=== PATIENT | male | born 1980 | race Two or more races ===

== ENCOUNTER 2024-08-10 20:35 | Emergency (ER) | payer MEDICAID, SELFPAY ==
[2024-08-10 20:51] VITALS: BP 158/98; PULSE 98; RESP 18; TEMP 36.9; O2SAT 96; BMI 34.4
--- NOTE | 2024-08-10 20:58 | XR_ITS ---
Examination: CT abdomen and pelvis without contrast. Coronal 3-D reconstructions. Sagittal 2-D reconstructions. Date and time of exam:July 14, 2024 2134 hrs. Indications: Bilateral flank pain beginning 3 days ago CTDI: vol (mGy): 9.82 DLP: (mGycm): 633 Technique: Axial images of the abdomen have been obtained, 3 mm slice thickness Intravenous contrast material has not been administered. Low dose protocols were performed. One or more of the following dose reduction techniques were used; automated exposure control, adjustment of the mA and/or KV according to patient size, use of iterative reconstruction technique. Findings: No focal liver or splenic lesions Contracted gallbladder No pancreatic or adrenal mass No renal or ureteral calculi, no hydronephrosis Aorta normal size Normal appendix 12 mm fat-containing umbilical hernia No bowel obstruction No diverticulitis Intact urinary bladder No prostatomegaly Impression: No renal or ureteral calculi, no hydronephrosis Normal appendix No bowel flexion diverticulitis or free air
--- NOTE | 2024-08-10 20:59 | PD.EDRME ---
Rapid Medical Screening Exam RME Arrival date/time: 08/10/24 20:35 43 year old male present Ed for c/o of flank pain for 3 days I have greeted and performed a focused initial assessment of this patient. A comprehensive ED assessment and evaluation of the patient, analysis of all test results, and completion of the medical decision making process will be conducted by additional ED providers. Chief Complaint: General Adult/Misc Complain Vital signs: Vital Signs Temperature 98.5 F 08/10/24 20:51 Pulse Rate 98 08/10/24 20:51 Respiratory Rate 18 08/10/24 20:51 Blood Pressure 158/98 H 08/10/24 20:51 Pulse Oximetry (%) 96 08/10/24 20:51 Oxygen Delivery Method Room Air 08/10/24 20:51
[2024-08-10 21:37] LABS: Basophils # (Auto) 0.1 Thou/mm3 (0.0-0.2); Basophils % (Auto) 1 % (0-2.5); Eosinophils # (Auto) 0.5 Thou/mm3 (0.0-0.5); Eosinophils % (Auto) 6 % (0-10); Hematocrit 41.3 % (41.0-53.0); Hemoglobin 13.9 g/dL (13.5-16.0); Immature Granulocytes % (Auto) 0 % (0-0); Immature Granulocytes Auto 0.02 Thou/mm3 (0.00-0.00); Lymphocytes # (Auto) 2.6 Thou/mm3 (1.0-4.8); Lymphocytes % (Auto) 36 % (10-50); Mean Corpuscular HGB Conc 33.7 g/dl (31.0-37.0); Mean Corpuscular Hemoglobin 28.8 pg (25.0-35.0); Mean Corpuscular Volume 86 fL (80-100); Monocytes # (Auto) 0.8 Thou/mm3 (0.0-0.8); Monocytes % (Auto) 11 % (0-12); Neutrophils # (Auto) 3.4 Thou/mm3 (1.8-7.7); Neutrophils % (Auto) 46 % (37-80); Nucleated Red Blood Cell % 0 /100 WBC (0); Platelet Count 254 Thou/mm3 (140-440); RDW Standard Deviation 42.1 fL (35.1-43.9); Red Blood Count 4.83 Miln/mm3 (4.50-5.90); White Blood Count 7.4 Thou/mm3 (3.8-10.6)
[2024-08-10 21:49] LABS: Collection Type, Urine Voided
[2024-08-10 21:51] LABS: Alanine Aminotransferase 99 U/L (10-49); Albumin, Serum 5.1 gm/dL (3.5-5.0); Albumin/Globulin Ratio 1.9 (1.2-2.2); Alkaline Phosphatase 108 U/L (46-116); Anion Gap 8 (7-16); Aspartate Amino Transferase 60 U/L (0-34); BUN/Creatinine Ratio 12 Ratio (12-20); Bilirubin,Total 0.8 mg/dL (0.3-1.2); Blood Urea Nitrogen 12 mg/dL (9-23); Calcium 9.6 mg/dL (8.3-10.6); Calcium (Corrected) 9.6 mg/dL (8.5-10.1); Carbon Dioxide 25.1 mMol/L (20.0-31.0); Chloride 105 mMol/L (98-107); Estimated Creatinine Clearance 98.2 mL/min (>60); Globulin 2.7 gm/dL (2.3-3.5); Glucose 145 mg/dL (74-106); Lipase 39 U/L (12-53); Osmolality,Calculated 278 (275-295); Potassium 3.4 mMol/L (3.4-5.1); Sodium 138 mMol/L (136-145); Total Protein 7.8 gm/dL (5.7-8.2); eGFR > 60 See Note
[2024-08-10 21:53] LABS: Bilirubin,Urine Negative (Negative); Blood,Urine Negative (Negative); Clarity,Urine Clear (Clear/Hazy); Color,Urine Yellow (Lt Yel-Yel); Glucose, Urine Negative (Negative); Ketones,Urine Negative (Negative); Leukocyte Esterase,Urine Negative (Negative); Nitrite,Urine Negative (Negative); Protein,Urine Negative (Neg - Trace); RBC,Urine 3 /hpf (0-3); Specific Gravity,Urine 1.026 (1.001-1.035); Squamous Epithelial Cell,Urine < 1 /hpf (0-5); Urobilinogen,Urine Negative mg/dL (0.0-1.0); WBC,Urine < 1 /hpf (0-5)
[2024-08-10] MEDS: KETOROLAC INJ 60 MG/2 ML VIAL 30 MG IM (22:39)
--- NOTE | 2024-08-10 22:44 | XR_ITS ---
Examination: Abdomen sonogram, Limited Date and time of exam: August 10, 2024 at 1058 hrs. Indications: Right upper abdominal pain right flank pain beginning 5 days ago Technique: Real-time espinoza scale transabdominal sonographic images of the upper abdomen obtained. Findings: Gallbladder sludge No gallstones Common bile duct 0.4 cm Pancreatic head 2.7 cm Liver 17.1 cm lobular contour fatty infiltration no focal liver lesions Normal hepatopedal portal venous flow Patent IVC Impression: Gallbladder sludge, negative for cholelithiasis, negative for cholecystitis Mild hepatomegaly fatty infiltration suspect primary hepatocellular disease
--- NOTE | 2024-08-11 | EDNOTE_ITS ---
<Statement entered by Alessia Manzano MD - 08/11/24 05:12> As co-signing physician, I was present and available for consult prn. I concur with the plan and care as documented by the midlevel provider. ED General RME/HPI General Chief complaint: General Adult/Misc Complain Stated complaint: BILATERAL TRUNK PAIN Time Seen by Provider: 08/11/24 00:00 Arrival date/time: 08/10/24 20:35 43 year old male present to emergency room with c/o of back pain for 3 days. denies any trauma or injury Denies new trauma No fevers No unexplained weight loss of night sweats No recent surgeries or recurrent bacterial infections No IVDU Patient is not immunocompromised Denies any new focal neurological deficits or new motor weakness Denies bowel or bladder incontinence or saddle anesthesia LOCATION: diffuse and flanks SEVERITY: Symptoms are described as being severe with limitations on activities of daily living QUALITY: Symptoms are described as being dull or achy CONTEXT: The patient is unable to identify any inciting events. DURATION/TIMING: The symptoms started approximately 3 day ago and have been constant this then. ASSOCIATED SYMPTOMS: The patient is unable to identify any other associated symptoms. MODIFYING FACTORS: The patient is unable to identify any alleviating or aggravating symptoms. PERTINENT ROS: no fevers, no IVDU, denies any ripping or tearing sensations, no associated abdominal pain, no focal neurological deficits and denies any saddle anesthesia, and no bowel or bladder incontinence REVIEW OF SYSTEMS: See History of Present Illness - with the exception of those mentioned in the history of present illness, all other systems reviewed and reported as negative GENERAL: In general the patient is awake, interactive, in an emergency department gurney. HEAD/EYES/EARS/NOSE/THROAT: normo-cephalic, atraumatic, mucus membranes are moist, anicteric, palpebral conjunctiva is pink, trachea is midline. CARDIOVASCULAR: regular rate and regular rhythm, no murmurs, heart sounds are not distant, strong pulses in all four extremities that are equal and symmetric bilateral upper and lower extremities, normal capillary refill. CHEST/PULMONARY: normal chest rise and fall, good air movement, clear to auscultation bilaterally, normal inspiratory to expiratory ratios without evidence of respiratory distress. NECK: No midline/Paraspinal tenderness, no step off ROM/Strenght intact No Kernig and bruzinski sign. No trauma ABDOMEN: soft, not tender, no masses appreciated BACK: + flank tenderness normal range of motion without pain. NEUROLOGICAL: cranio-facial features are symmetric, moves all four extremities equally without obvious limitations or weakness. EXTREMITY: no tenderness to palpation over the long bones or large joints of the bilateral upper and lower extremities, no joint swelling, no joint erythema, no signs of trauma, no unilateral leg swelling and no peripheral edema. SKIN: warm, dry, well-perfused, no jaundice, no rash, no telangiectasias or petechia. PSYCH: calm, cooperative, no evidence of psychosis or agitation RME / HPI RME / HPI narrative: 08/10/24 20:35 43 year old male present Ed for c/o of flank pain for 3 days I have greeted and performed a focused initial assessment of this patient. A comprehensive ED assessment and evaluation of the patient, analysis of all test results, and completion of the medical decision making process will be conducted by additional ED providers. Related Data Previous Rx's ?Medication ?Instructions ?Recorded pantoprazole 40 mg tablet,delayed 40 mg PO QDAY #20 tabs 01/10/21 release (Protonix) dicyclomine 20 mg tablet 20 mg PO BID PRN abdominal pain 07/12/24 #30 tabs polyethylene glycol 3350 17 4 g PO QDAY PRN constipation #119 07/12/24 gram/dose oral powder (ClearLax) grams cyclobenzaprine 10 mg tablet 10 mg PO HS PRN muscle spasm #30 08/11/24 tabs meloxicam 7.5 mg tablet 7.5 mg PO QDAY #30 tabs 08/11/24 Allergies Allergy/AdvReac Type Severity Reaction Status Date / Time No Known Allergies Allergy Verified 08/10/24 20:37 Course Course Course Narrative: Patient?s symptoms not typical for emergent causes of abdominal pain such as, but not limited to, appendicitis, abdominal aortic aneurysm, surgical biliary disease, pancreatitis, SBO, mesenteric ischemia, serious intra-abdominal bacterial illness, genital torsion. Doubt atypical ACS. Pt tolerating PO. rx: mobic and flexeril Disposition: Patient will be discharged with strict return precautions and follow up with primary MD within 12-24 hours for further evaluation. Patient understands that this still may have an early presentation of an emergent medical condition such as appendicitis that will require a recheck. Quality Measures none Orders Category Date Time Status CT abdomen pelvis wo con Stat Exams 08/10/24 20:58 Completed US abdomen limited Stat Exams 08/10/24 22:44 Completed CBC Stat Lab 08/10/24 21:09 Completed CMP [Comprehensive Metabolic Panel] Stat Lab 08/10/24 21:09 Completed Lipase Stat Lab 08/10/24 21:09 Completed UA [Urinalysis] Stat Lab 08/10/24 21:39 Completed Urine Culture Stat Lab 08/10/24 21:39 Received Ketorolac Inj [Toradol Inj] Med 08/10/24 22:07 Discontinued 30 mg IM X1 ONE Vital Signs Vital signs: Vital Signs Temperature 98.5 F 08/10/24 20:51 Pulse Rate 98 08/10/24 20:51 Respiratory Rate 18 08/10/24 20:51 Blood Pressure 158/98 H 08/10/24 20:51 Pulse Oximetry (%) 96 08/10/24 20:51 Oxygen Delivery Method Room Air 08/10/24 20:51 [facility] Patient data External records reviewed:: None Clinical information provided by:: patient Social determinants that could affect healthcare access:: none Patient has the following chronic illnesses:: none How is presenting disease/condition affected by chronic disease/condition?: no chronic disease Evaluation data The following diagnostics were reviewed and interpreted by me:: lab results and radiology exam(s) Lab and/or radiology exams considered but not ordered:: none Interpretation Summary: cbc/cmp/urine no acute findings US: Gallbladder sludge No gallstones Common bile duct 0.4 cm Pancreatic head 2.7 cm Liver 17.1 cm lobular contour fatty infiltration no focal liver lesions Normal hepatopedal portal venous flow Patent IVC Impression: Gallbladder sludge, negative for cholelithiasis, negative for cholecystitis Mild hepatomegaly fatty infiltration suspect primary hepatocellular disease CT: no acute findings Medications Medications considered but not ordered:: none Medication administrations:: Medication Administration History Discontinued Medications Ketorolac Tromethamine (Ketorolac Inj 60 Mg/2 Ml Vial) 30 mg IM X1 ONE Stop: 08/10/24 22:08 Last Admin: 08/10/24 22:39 Dose: 30 mg Documented By: as stated above Consultations Consultation(s) initiated? (list below): No Diagnosis Differential Diagnosis ED Complaint MDM: gallstone vs kidney stone, sbo, constipation vs UTI, constipation, colitis Most likely diagnosis given after review of the tests above:: sludge gallbladder , back pain Admission Indicated Admission indicated?: not indicated Explain why admission is indicated or not indicated:: not indicated Admission Request Was there a request for admission?: No Disposition Plan Disposition Plan: Discharge Discharge Attestation Discharge Attestation: The patient and all family members were given an opportunity to ask questions and understood the discharge instructions. Discharge instructions specifically effects, indications for sooner follow up or return to the emergency department, and the expected course of current diagnosis. Patient condition: Stable Medical Decision Making Differential Diagnosis Differential Diagnosis: gallstone vs kidney stone, sbo, constipation vs UTI, constipation, colitis Lab Data 08/10/24 21:09 08/10/24 21:09 Labs: Lab Results 08/10/24 08/10/24 Range/Units 21:09 21:39 WBC 7.4 (3.8-10.6) Thou/mm3 RBC 4.83 (4.50-5.90) Miln/mm3 Hgb 13.9 (13.5-16.0) g/dL Hct 41.3 (41.0-53.0) % MCV 86 (80-100) fL MCH 28.8 (25.0-35.0) pg MCHC 33.7 (31.0-37.0) g/dl RDW Std Deviation 42.1 (35.1-43.9) fL Plt Count 254 (140-440) Thou/mm3 Neut % (Auto) 46 (37-80) % Lymph % (Auto) 36 (10-50) % [place] % (Auto) 11 (0-12) % Eos % (Auto) 6 (0-10) % Baso % (Auto) 1 (0-2.5) % Neut # (Auto) 3.4 (1.8-7.7) Thou/mm3 Lymph # (Auto) 2.6 (1.0-4.8) Thou/mm3 [place] # (Auto) 0.8 (0.0-0.8) Thou/mm3 Eos # (Auto) 0.5 (0.0-0.5) Thou/mm3 Baso # (Auto) 0.1 (0.0-0.2) Thou/mm3 Immature Gran # (Auto) 0.02 H (0.00-0.00) Thou/mm3 Absolute Nucleated RBC 0.00 (0.00-0.00) Thou/mm3 Immature Gran % 0 (0-0) % Nucleated RBC % 0 (0) /100 WBC Sodium 138 (136-145) mMol/L Potassium 3.4 (3.4-5.1) mMol/L Chloride 105 (98-107) mMol/L Carbon Dioxide 25.1 (20.0-31.0) mMol/L Anion Gap 8 (7-16) BUN 12 (9-23) mg/dL Creatinine 1.0 (0.6-1.3) mg/dL Estim Creat Clear Calc 98.2 (>60) mL/min eGFR > 60 (60 - ) See Note BUN/Creatinine Ratio 12 (12-20) Ratio Glucose 145 H (74-106) mg/dL Calculated Osmolality 278 (275-295) Calcium 9.6 (8.3-10.6) mg/dL Corrected Calcium 9.6 (8.5-10.1) mg/dL Total Bilirubin 0.8 (0.3-1.2) mg/dL AST 60 H (0-34) U/L ALT 99 H (10-49) U/L Alkaline Phosphatase 108 (46-116) U/L Total Protein 7.8 (5.7-8.2) gm/dL Albumin 5.1 H (3.5-5.0) gm/dL Globulin 2.7 (2.3-3.5) gm/dL Albumin/Globulin Ratio 1.9 (1.2-2.2) Lipase 39 (12-53) U/L Ur Collection Type Voided Urine Color Yellow (Lt Yel-Yel) Urine Clarity Clear (Clear/Hazy) Urine pH 6.0 (5.0-7.0) Ur Specific [place] 1.026 (1.001-1.035) Urine Protein Negative (Neg - Trace) Urine Glucose (UA) Negative (Negative) Urine Ketones Negative (Negative) Urine Blood Negative (Negative) Urine Nitrite Negative (Negative) Urine Bilirubin Negative (Negative) Urine Urobilinogen (Auto) Negative (0.0-1.0) mg/dL Ur Leukocyte Esterase Negative (Negative) Urine RBC 3 (0-3) /hpf Urine WBC < 1 (0-5) /hpf Ur Squamous Epith Cells < 1 (0-5) /hpf Urine Bacteria None (None) Discharge Plan Plan Patient Disposition: HOME (Self Care) Prescriptions/Referrals Prescriptions/Med Rec: New meloxicam 7.5 mg tablet 7.5 mg PO QDAY Qty: 30 1RF cyclobenzaprine 10 mg tablet 10 mg PO HS PRN (Reason: muscle spasm) Qty: 30 0RF No Action pantoprazole [Protonix] 40 mg tablet,delayed release (DR/EC) 40 mg PO QDAY Qty: 20 0RF polyethylene glycol 3350 [ClearLax] 17 gram/dose powder 4 g PO QDAY PRN (Reason: constipation) Qty: 119 0RF dicyclomine 20 mg tablet 20 mg PO BID PRN (Reason: abdominal pain) Qty: 30 0RF Referrals: Leeann Fields [facility] [Primary Care Provider] - In 1 week Problem List Clinical Impression: Gallbladder sludge Patient/Caregiver Discharge Instructions Print Language: Lithuanian Stand Alone Forms: Melissa Award Info., Patient Portal Info Letter
== END 2024-08-11 00:19 | disposition home or self-care (01) ==
PROVIDERS: Physician Assistant; Emergency Provider Emergency Medicine; PCP Nurse Practitioner Family
DX: K82.8 Other specified diseases of gallbladder (principal); K76.0 Fatty (change of) liver, not elsewhere classified
CPT/HCPCS: 36415; 74176; 76705; 80053; 81001; 83690; 85025; 87086; 96372; 99284; J1885

== ENCOUNTER 2025-05-12 20:00 | Emergency (ER) | payer MEDICAID, SELFPAY ==
[2025-05-12 20:05] VITALS: BMI 30.2
[2025-05-12 20:21] VITALS: BP 150/90; PULSE 84; RESP 18; TEMP 37; O2SAT 98
--- NOTE | 2025-05-12 20:27 | XR_ITS ---
Examination: CT abdomen and pelvis without contrast. Coronal 3-D reconstructions. Sagittal 2-D reconstructions. Date and time of exam:May 12, 2025 2040 hrs., Comparison August 10, 2024 Indications: Right-sided flank pain beginning 3 weeks ago. CTDI: vol (mGy): 8.99 DLP: (mGycm): 537 Technique: Axial images of the abdomen have been obtained, 3 mm slice thickness Intravenous contrast material has not been administered. Low dose protocols were performed. One or more of the following dose reduction techniques were used; automated exposure control, adjustment of the mA and/or KV according to patient size, use of iterative reconstruction technique. Findings: Liver is mildly irregular in contour. No focal liver lesions. No gallstones. Spleen is not enlarged. No renal or ureteral calculi, no hydronephrosis Aorta normal size Normal No bowel obstruction No diverticulitis No bladder mass or bladder calculi No prostatomegaly Tiny fat-containing inguinal hernias The osseous structures are intact Impression: Liver mildly irregular in contour No renal or ureteral calculi, no hydronephrosis Normal appendix No bladder mass or bladder calculi
--- NOTE | 2025-05-12 20:27 | XR_ITS ---
Examination: Abdomen sonogram, Limited Date and time of exam: May 12, 2025 2117 hrs. Indications: Onset right upper abdominal pain beginning 2 days ago. Technique: Real-time espinoza scale transabdominal sonographic images of the upper abdomen obtained. Findings: Normal gallbladder. Normal common bile duct 0.2 cm Pancreatic head 2.3 cm Liver 14.4 cm fatty infiltration no focal liver lesions Normal hepatopedal portal venous flow Patent IVC Impression: Normal gallbladder Normal common bile duct
[2025-05-12 21:00] LABS: Basophils # (Auto) 0.1 Thou/mm3 (0.0-0.2); Basophils % (Auto) 1 % (0-2.5); Eosinophils # (Auto) 0.2 Thou/mm3 (0.0-0.5); Eosinophils % (Auto) 3 % (0-10); Hematocrit 40.7 % (41.0-53.0); Hemoglobin 13.7 g/dL (13.5-16.0); Immature Granulocytes Auto 0.01 Thou/mm3 (0.00-0.00); Lymphocytes # (Auto) 2.2 Thou/mm3 (1.0-4.8); Lymphocytes % (Auto) 34 % (10-50); Mean Corpuscular HGB Conc 33.7 g/dl (31.0-37.0); Mean Corpuscular Hemoglobin 28.8 pg (25.0-35.0); Mean Corpuscular Volume 86 fL (80-100); Monocytes # (Auto) 0.7 Thou/mm3 (0.0-0.8); Monocytes % (Auto) 10 % (0-12); Neutrophils # (Auto) 3.5 Thou/mm3 (1.8-7.7); Neutrophils % (Auto) 53 % (37-80); Nucleated Red Blood Cell # 0.00 Thou/mm3 (0.00-0.00); Nucleated Red Blood Cell % 0 /100 WBC (0); Platelet Count 303 Thou/mm3 (140-440); RDW Standard Deviation 44.1 fL (35.1-43.9); Red Blood Count 4.76 Miln/mm3 (4.50-5.90); White Blood Count 6.6 Thou/mm3 (3.8-10.6)
[2025-05-12 21:23] LABS: Alanine Aminotransferase 30 U/L (10-49); Albumin, Serum 4.7 gm/dL (3.5-5.0); Albumin/Globulin Ratio 1.8 (1.2-2.2); Alkaline Phosphatase 119 U/L (46-116); Amylase 50 U/L (30-118); Anion Gap 11 (7-16); Aspartate Amino Transferase 41 U/L (0-34); BUN/Creatinine Ratio 12 Ratio (12-20); Bilirubin,Direct 0.2 mg/dL (0.0-0.3); Bilirubin,Total 0.6 mg/dL (0.3-1.2); Blood Urea Nitrogen 11 mg/dL (9-23); Calcium 9.7 mg/dL (8.3-10.6); Calcium (Corrected) 9.7 mg/dL (8.5-10.1); Carbon Dioxide 21.9 mMol/L (20.0-31.0); Chloride 109 mMol/L (98-107); Creatinine (Component) 0.9 mg/dL (0.6-1.3); Estimated Creatinine Clearance 104.9 mL/min (>60); Globulin 2.6 gm/dL (2.3-3.5); Glucose 102 mg/dL (74-106); Lipase 31 U/L (12-53); Magnesium 1.8 mg/dL (1.6-2.6); Osmolality,Calculated 282 (275-295); Potassium 3.6 mMol/L (3.4-5.1); Sodium 142 mMol/L (136-145); Total Protein 7.3 gm/dL (5.7-8.2); eGFR > 60 See Note
--- NOTE | 2025-05-12 21:43 | EDNOTE_ITS ---
ED Abdominal Pain RME/HPI General Chief Complaint: Abdominal Pain Stated complaint: R SIDE ABD PAIN Time seen by provider: 05/12/25 20:25 Arrival date/time: 05/12/25 20:00 RME / HPI RME / HPI narrative: See [facility] for Dr. Espinoza's HPI Documentation. Related Data Previous Rx's ?Medication ?Instructions ?Recorded pantoprazole 40 mg tablet,delayed 40 mg PO QDAY #20 ta bs 01/10/21 release (Protonix) dicyclomine 20 mg tablet 20 mg PO BID PRN abdominal p ain 07/12/24 #30 tabs polyethylene glycol 3350 17 4 g PO QDAY PRN constipati on #119 07/12/24 gram/dose oral powder (ClearLax) grams cyclobenzaprine 10 mg tablet 10 mg PO HS PRN muscle sp asm #30 08/11/24 tabs meloxicam 7.5 mg tablet 7.5 mg PO QDAY #30 tabs 1210/04 Allergies Allergy/AdvReac Type Severity Reaction Status Date / Time No Known Allergies Allergy Verified 05/12/25 20:12 Review of Systems Review of Systems Systems Reviewed: All systems reviewed, normal except as documented ED Exam Narrative Physical exam: See [facility] for Dr. Espinoza's Physical Exam Documentation. Course Quality Measures none Orders Category Date Time Status CT abdomen pelvis wo con Stat Exams 05/12/25 20:27 Completed US gall bladder Stat Exams 05/12/25 20:27 Completed Amylase Stat Lab 05/12/25 20:43 Completed Bilirubin,Direct Stat Lab 05/12/25 20:43 Completed CBC Stat Lab 05/12/25 20:43 Completed CMP [Comprehensive Metabolic Panel] Stat Lab 05/12/25 20:43 Completed Lipase Stat Lab 05/12/25 20:43 Completed Magnesium Stat Lab 05/12/25 20:43 Completed Vital Signs Vital signs: Vital Signs Temperature 98.6 F 05/12/25 20:21 Pulse Rate 84 05/12/25 20:21 Respiratory Rate 18 05/12/25 20:21 Blood Pressure 150/90 H 05/12/25 20:21 Pulse Oximetry (%) 98 05/12/25 20:21 Oxygen Delivery Method Room Air 05/12/25 20:21 Abdominal Pain [facility] Narrative [facility] Narrative:: Scribe Attestation: Ruth Fraser, am scribing for and in the presence of Dr. Espinoza. Provider Notation: Although this document has been carefully reviewed, there may still be some phonetic and other typographical errors. These errors are purely grammatical due to imperfections in the software program and should not be construed in any way to compromise the substance of the patient's medical care during this visit. This section includes all my notes and documentations, including HPI, PE, and ED course. Shilo Espinoza MD HPI: 44 y/o male presents with left-sided abdominal pain for several days. Has trouble localizing the pain further. Has trouble describing the quality and quantity of the pain. Uncertain about exacerbating factors or relieving factors. No nausea and vomiting. Eating normally. No other complaints. ROS: All negative except as documented in HPI. Physical Exam: General: Alert and oriented. No acute distress when remaining still. Eyes: Conjunctivae and lids clear. ENT: No nasal congestion. Neck: Supple. Heart: RRR. Lungs: No respiratory distress. Good air movement. No rhonchi, wheezing, rales. Abdomen: Soft and nontender. Normal bowel sounds. No distension. No rebound or guarding. Back: No CVA tenderness. Skin: Warm and dry. Neuro: Alert and oriented X 3. I reviewed all diagnostic test results: My review of the Gallbladder US report is: NAD. My review of the Abdomen/Pelvis CT report is: NAD. Blood tests unremarkable. At this point, diagnoses include: Abdominal wall pain. Recommended outpatient care. Based on my best medical judgment, made decision no further evaluation or pancho atment indicated at this time. Patient understands and agrees to the discharge instructions customized and printed, see below. Discharge Instructions from Dr. Espinoza printed for you: 1. After extensive evaluation, there is no emergency or any serious condition. 2. Your pain may be originating from the abdominal wall and not from an internal organ. See attached handout. 3. Apply ice or heat if helpful. 4. Tylenol/ibuprofen as needed. 5. See a private doctor outside the ER on 05/14/2025 for recheck and further care. Ask to review all test results and official radiology reports, to make sure you receive all necessary follow-ups and monitoring. To make sure there is no serious intra-abdominal condition, ask for help with more investigation not available here in the ER. Such as EGD or scoping the stomach, colonoscopy or scoping the colon, and referral to see studio operation engineer. 6. Seek immediate medical care with worsening or with any concerns. Shilo Espinoza MD Patient data External records reviewed:: [facility] previous records (Reviewed prior ED record from 08/11/24. Patient was seen for Gallbladder sludge.) Clinical information provided by:: patient Social determinants that could affect healthcare access:: none Patient has the following chronic illnesses:: None reported. How is presenting disease/condition affected by chronic disease/condition?: no chronic disease Evaluation data The following diagnostics were reviewed and interpreted by me:: lab results and radiology exam(s) Lab and/or radiology exams considered but not ordered:: None Interpretation Summary: I reviewed all diagnostic test results: My review of the Gallbladder US report is: NAD. My review of the Abdomen/Pelvis CT report is: NAD. Blood tests unremarkable. Medications / Prescriptions Medications or Prescriptions considered but not ordered:: None Medication administrations:: None Consultations Consultation(s) initiated? (list below): No Diagnosis Differential diagnosis abdominal pain: abdominal pain, acute appendicitis, calculus of kidney, constipation, diverticulitis, gastroenteritis, pancreatitis and small bowel obstruction Most likely diagnosis given after review of the tests above:: Abdominal wall pain Admission Indicated Admission indicated?: not indicated Explain why admission is indicated or not indicated:: With no condition needing emergent intervention, there was no indication for admission. Admission Request Was there a request for admission?: No Disposition Plan Disposition Plan: Discharge Discharge Attestation Discharge Attestation: The patient and all family members were given an opportunity to ask questions and understood the discharge instructions. Discharge instructions specifically effects, indications for sooner follow up or return to the emergency department, and the expected course of current diagnosis. Patient condition: Stable Discharge Plan Plan Patient Disposition: HOME (Self Care) Prescriptions/Referrals Prescriptions/Med Rec: No Action pantoprazole [Protonix] 40 mg tablet,delayed release (DR/EC) 40 mg PO QDAY Qty: 20 0RF polyethylene glycol 3350 [ClearLax] 17 gram/dose powder 4 g PO QDAY PRN (Reason: constipation) Qty: 119 0RF dicyclomine 20 mg tablet 20 mg PO BID PRN (Reason: abdominal pain) Qty: 30 0RF meloxicam 7.5 mg tablet 7.5 mg PO QDAY Qty: 30 1RF cyclobenzaprine 10 mg tablet 10 mg PO HS PRN (Reason: muscle spasm) Qty: 30 0RF Referrals: No Primary/Family,Physician [Primary Care Provider] - In 1 week Problem List Clinical Impression: Abdominal pain Patient/Caregiver Discharge Instructions Discharge Activity: activity as tolerated Education Materials: ED Muscle Strain, Abdomen Additional Instructions: Discharge Instructions from Dr. Espinoza printed for you: 1. After extensive evaluation, there is no emergency or any serious condition. 2. Your pain may be originating from the abdominal wall and not from an internal organ. See attached handout. 3. Apply ice or heat if helpful. 4. Tylenol/ibuprofen as needed. 5. See a private doctor outside the ER on 05/14/2025 for recheck and further care. Ask to review all test results and official radiology reports, to make sure you receive all necessary follow-ups and monitoring. To make sure there is no serious intra-abdominal condition, ask for help with more investigation not available here in the ER. Such as EGD or scoping the stomach, colonoscopy or scoping the colon, and referral to see studio operation engineer. 6. Seek immediate medical care with worsening or with any concerns. Instrucciones de juan carlos del Dr. Espinoza, impresas para usted: 1. Tras jose manuel evaluaci?n exhaustiva, no se trata de jose manuel emergencia ni de ninguna afecci?n grave. 2. Es posible que leigh dolor se origine en la pared abdominal y no en un ?rgano interno. Consulte el folleto adjunto. 3. Aplique hielo o calor si le resulta ?til. 4. Tylenol/ibuprofeno seg?n sea necesario. 5. Consulte con un m?dico privado fuera de urgencias el 11/17/2024 para jose manuel nueva revisi?n y atenci?n adicional. Solicite la revisi?n de todos los resultados de las pruebas y los informes radiol?gicos oficiales para asegurarse de recibir todos los seguimientos y la monitorizaci?n necesarios. Para asegurarse de que no se trate de jose manuel afecci?n intraabdominal grave, solicite ayuda con otras pruebas que no est?n disponibles en urgencias, ron jose manuel endoscopia estomacal (EGD) o jose manuel endoscopia g?strica, jose manuel colonoscopia o jose manuel endoscopia de colon, y la derivaci?n a un gastroenter?logo. 6. Busque atenci?n m?dica inmediata si presenta empeoramiento o si tiene alguna inquietud. Print Language: Welsh Stand Alone Forms: Melissa Award Info., Patient Portal Info Letter
[2025-05-12 22:06] VITALS: BP 153/89; PULSE 62; RESP 17; TEMP 36.7; O2SAT 99
== END 2025-05-12 22:10 | disposition home or self-care (01) ==
PROVIDERS: Emergency Provider Emergency Medicine
DX: R10.11 Right upper quadrant pain (principal)
CPT/HCPCS: 36415; 74176; 76705; 80053; 82150; 82248; 83690; 83735; 85025; 99283